=== PATIENT | female | born 1985 | race Caucasian/White ===

== ENCOUNTER 2021-04-23 22:55 | Emergency (ER) | payer BC ==
[~2021-04-23] VITALS: Ht 165.1 cm; Wt 61.2 kg
--- NOTE | 2021-04-23 23:15 | NUR ---
PATIENT C/O NAUSEA 2 x HR AGO S/P TAKING COUGH SYRUP FOR A FEVER. DENIES VOMITING. PATIENT A/OX 4, RR EVEN AND UNLABORED, NO SOB NOTED. VSS, PATIENT CONNECTED TO MONITOR. WILL CONTINUE TO MONITOR.
[2021-04-23] MEDS ORDERED: ONDANSETRON 4 MG TAB.RAPDIS ONE (23:27)
[2021-04-23] MEDS ORDERED: ONDANSETRON 4 MG TAB.RAPDIS PO ONE (23:30)
[2021-04-24] MEDS ORDERED: IV NS 0.9% 1,000 ML BAG IV ONE
[2021-04-24] MEDS ORDERED: ONDANSETRON HCL/PF 4 MG/2 ML VIAL IVP ONE
[2021-04-24] MEDS ORDERED: ONDANSETRON HCL/PF 4 MG/2 ML VIAL ONE (00:05)
[2021-04-24 00:07] LABS: BASOPHILS % (AUTO) 0.7 % (0.0-2.0); EOSINOPHILS % (AUTO) 0.8 % (0.0-6.0); HEMATOCRIT 42 % (33-45); HEMOGLOBIN 14.2 g/dL (11.5-14.8); LYMPHOCYTES # (AUTO) 0.7 K/uL (0.8-4.8); MEAN CORPUSCULAR HGB CONC 34 g/dl (31.0-36.0); MEAN CORPUSCULAR VOLUME 90 fL (82-100); MONOCYTES # (AUTO) 0.2 K/uL (0.1-1.30); MONOCYTES % (AUTO) 4.7 % (2.0-12.0); NEUTROPHILS # (AUTO) 4.2 K/uL (1.8-8.9); NEUTROPHILS % (AUTO) 79.8 % (43.0-81.0); PLATELET COUNT (AUTO) 145 K/uL (150-450); RED BLOOD CELL COUNT(AUTO) 4.69 MIL/uL (4.0-5.2); WHITE BLOOD COUNT (AUTO) 5.3 K/uL (4.3-11.0)
[2021-04-24 00:20] LABS: CALCIUM, SERUM 8.9 mg/dL (8.5-10.1); CARBON DIOXIDE 27 mmol/L (21-32); CHLORIDE 100 mmol/L (98-107); CREATININE 0.7 mg/dL (0.6-1.3); GLUCOSE 110 mg/dL (74-106); POTASSIUM 3.7 mmol/L (3.5-5.1); SODIUM SERUM 136 mmol/L (136-145); UREA NITROGEN, BLOOD 9 mg/dL (7-18)
[2021-04-24 00:31] LABS: ALANINE AMINOTRANSFERASE 26 U/L (12-78); ALBUMIN 4.6 g/dL (3.4-5.0); ALKALINE PHOSPHATASE 59 U/L (46-116); ASPARTATE AMINOTRANSFERASE 29 U/L (15-37); BILIRUBIN,DIRECT 0.1 mg/dL (0.0-0.2); BILIRUBIN,TOTAL 0.2 mg/dL (0.2-1.0)
--- NOTE | 2021-04-24 01:03 | NUR ---
KRISTIANID COLLECTED SENT TO LAB
--- NOTE | 2021-04-24 01:25 | NUR ---
URINE COLLECTED AND SENT TO LAB
--- NOTE | 2021-04-24 01:56 | NUR ---
PATIENT TAKEN TO CT
[2021-04-24] MEDS ORDERED: ONDA4TAB5 PO (03:07)
--- NOTE | 2021-04-24 03:21 | NUR ---
Patient discharged to home in stable condition. Written and verbal after care instructions given. Patient verbalizes understanding of instruction.
[2021-04-24 03:22] VITALS: BP 122/64
== END 2021-04-24 03:22 | disposition home or self-care (01) ==
LOC: ER 23:00
DX: U07.1 COVID-19 (principal); R11.2 Nausea with vomiting, unspecified; R42 Dizziness and giddiness; Z88.0 Allergy status to penicillin
CPT/HCPCS: 36415; 70450; 71045; 80048; 80076; 84484; 84703; 85025; 87426; 96361; 96374; 99285; C9803; J2405; Q0162

== ENCOUNTER 2021-04-27 18:28 | Emergency (ER) | payer BC ==
[~2021-04-27] VITALS: Ht 165.1 cm; Wt 61.2 kg
[~2021-04-27 18:28] MED LIST: ONDA4TAB5 PO
--- NOTE | 2021-04-27 19:10 | NUR ---
Griselda - sister [phone]
--- NOTE | 2021-04-27 19:22 | NUR ---
Report to Sue
[2021-04-27] MEDS ORDERED: ONDANSETRON HCL/PF - ER 4 MG/2 ML VIAL IV ONE (19:30)
[2021-04-27] MEDS ORDERED: ONDANSETRON HCL/PF 4 MG/2 ML VIAL ONE (19:33)
--- NOTE | 2021-04-27 19:47 | NUR ---
Pt refusing blood draw stating she recently had blood work done.
[2021-04-27] MEDS ORDERED: IV NS 0.9% 1,000 ML IV ONE (20:00)
[2021-04-27] MEDS ORDERED: METOCLOPRAMIDE HCL 10 MG/2 ML VIAL ONE (20:52)
[2021-04-27] MEDS ORDERED: METOCLOPRAMIDE HCL 10 MG/2 ML VIAL IV ONE (21:00)
[2021-04-27] MEDS ORDERED: ONDA4TAB11 PO (21:22)
[2021-04-27 22:42] VITALS: BP 115/61
--- NOTE | 2021-04-27 22:42 | NUR ---
Patient discharged to home in stable condition. Written and verbal after care instructions given. Patient verbalizes understanding of instruction.
== END 2021-04-27 22:42 | disposition home or self-care (01) ==
LOC: ER 18:29
DX: R40.0 Somnolence (principal); R11.0 Nausea; T45.0X5A Adverse effect of antiallergic and antiemetic drugs, initial encounter; Z88.0 Allergy status to penicillin; Y92.89 Other specified places as the place of occurrence of the external cause
CPT/HCPCS: 96361; 96374; 96375; 99284; J2405 ×2; J2765; J7030